=== PATIENT | male | born 1940 | race Caucasian/White ===

== ENCOUNTER 2018-09-17 14:41 | Inpatient (IN) | payer MEDICARE ==
[2018-09-17] MEDS ORDERED: SODIUM CHLORIDE 0.9% 1,000 ML IV ONE ×2 (15:08→20:30)
[2018-09-17] MEDS ORDERED: ASPIRIN 81 MG PO STA (15:08)
[2018-09-17] MEDS ORDERED: ONDANSETRON 4 MG/2 ML VIAL IVP STA (15:08)
--- NOTE | 2018-09-17 15:11 | ED ---
General Adult HPI - General Chief complaint: Weakness Stated complaint: Vomiting Time Seen by Provider: 09/17/18 15:00 Source: patient Mode of arrival: ambulatory Limitations: no limitations - History of Present Illness Initial comments: Patient is a 78-year-old male who presents with a chief complaint of weakness and abdominal pain. This is being going on for about a week, gradually getting worse. The patient was seen by his primary care doctor diagnosed with a urinary tract infection, and started on ciprofloxacin. Patient says his pain is getting worse, he is now nauseated and throwing up. He cannot identify an inciting incident. There are no aggravating or alleviating factors. Timing is constant. - Related Data Home Medications Medication Instructions Recorded Confirmed Albuterol Sulfate [Proair Hfa] 2 puff INHALATION RT-Q6H PRN 09/17/18 09/17/18 Apixaban [Eliquis] 5 mg PO BID 09/17/18 09/17/18 Aspirin EC [Ecotrin Low Dose] 81 mg PO DAILY 09/17/18 09/17/18 Atorvastatin [Lipitor] 40 mg PO DAILY 09/17/18 09/17/18 Digoxin [Lanoxin] 125 mcg PO DAILY 09/17/18 09/17/18 Fluticasone/Vilanterol [Breo 1 puff INHALATION RT-DAILY 09/17/18 09/17/18 Ellipta 100-25 Mcg Inhaler] Furosemide [Lasix] 20 mg PO DAILY 09/17/18 09/17/18 Lisinopril [Zestril] 10 mg PO DAILY 09/17/18 09/17/18 Metoprolol Tartrate [Lopressor] 50 mg PO BID 09/17/18 09/17/18 Nitroglycerin Sl Tabs [Nitrostat] 0.4 mg SUBLINGUAL Q5M PRN 09/17/18 09/17/18 Omeprazole 20 mg PO DAILY 09/17/18 09/17/18 traMADol HCL [Ultram] 50 mg PO DAILY PRN 09/17/18 09/17/18 Allergies Allergy/AdvReac Type Severity Reaction Status Date / Time No Known Allergies Allergy Verified 09/17/18 14:57 Review of Systems ROS Statement: Those systems with pertinent positive or pertinent negative responses have been documented in the HPI. ROS Other: All systems not noted in ROS Statement are negative. Gastrointestinal: Reports: abdominal pain, nausea, vomiting Genitourinary: Reports: dysuria, frequency Past Medical History Past Medical History: Atrial Fibrillation, COPD, Hyperlipidemia, Hypertension Additional Past Medical History / Comment(s): Hiatal hernia History of Any Multi-Drug Resistant Organisms: None Reported Past Surgical History: Heart Catheterization With Stent, Hernia Repair, Prostate Surgery Past Psychological History: No Psychological Hx Reported Smoking Status: Former smoker Past Alcohol Use History: None Reported Past Drug Use History: None Reported General Exam Limitations: no limitations General appearance: alert, in no apparent distress Head exam: Present: atraumatic, normocephalic Eye exam: Present: normal appearance ENT exam: Present: normal exam Neck exam: Present: normal inspection Respiratory exam: Present: normal lung sounds bilaterally. Absent: respiratory distress, wheezes Cardiovascular Exam: Present: regular rate, normal rhythm GI/Abdominal exam: Present: soft, tenderness (Patient has tenderness in the lower abdomen, and chest beneath the xiphoid.). Absent: distended Rectal exam: Present: deferred Extremities exam: Present: normal inspection Back exam: Present: normal inspection Neurological exam: Present: alert, oriented X3 Psychiatric exam: Present: normal affect, normal mood Skin exam: Present: warm, dry, intact Course Vital Signs 09/17/18 09/17/18 09/17/18 14:44 15:46 20:42 Temperature 98.3 F 98.5 F Pulse Rate 67 82 97 Respiratory 20 18 28 H Rate Blood Pressure 150/58 143/98 160/134 O2 Sat by Pulse 97 96 94 L Oximetry 09/17/18 20:44 Temperature Pulse Rate Respiratory 22 Rate Blood Pressure O2 Sat by Pulse 96 Oximetry Medical Decision Making - Medical Decision Making Patient presents with a chief complaint of abdominal pain and weakness. On initial evaluation, vitals are stable, patient is in no acute distress. He evaluated patient allegedly cardiac enzymes, computed tomography scan of the abdomen and pelvis, liver profile and lipase. Patient given IV fluids, Zofran, and aspirin. EKG performed at 1535 shows normal sinus rhythm with a rate of 76 bpm, QTC is 483, symptoms are otherwise within normal limits. Bladder scan shows a 20 mL. 8:31 PM Lab evaluation this patient is unremarkable except for signs of dehydration. He has 2+ ketones in the urine, no evidence of urinary tract infection. Computed tomography scan of the abdomen and pelvis shows an ileus appearance. Case discussed with Dr. Malave who is agreeable to observation with surgery on consultation. Patient will be given an additional liter of fluid and Pyridium for dysuria. - Lab Data Result diagrams: 09/17/18 15:22 09/17/18 15:22 Lab Results 09/17/18 09/17/18 09/17/18 Range/Units 15:22 15:22 15:22 WBC 12.8 H (3.8-10.6) k/uL RBC 4.35 (4.30-5.90) m/uL Hgb 13.4 (13.0-17.5) gm/dL Hct 39.1 (39.0-53.0) % MCV 89.9 (80.0-100.0) fL MCH 30.8 (25.0-35.0) pg MCHC 34.2 (31.0-37.0) g/dL RDW 15.6 H (11.5-15.5) % Plt Count 303 (150-450) k/uL Neutrophils % 81 % Lymphocytes % 11 % Monocytes % 6 % Eosinophils % 0 % Basophils % 0 % Neutrophils # 10.3 H (1.3-7.7) k/uL Lymphocytes # 1.5 (1.0-4.8) k/uL Monocytes # 0.8 (0-1.0) k/uL Eosinophils # 0.0 (0-0.7) k/uL Basophils # 0.0 (0-0.2) k/uL Sodium 140 (137-145) mmol/L Potassium 3.1 L (3.5-5.1) mmol/L Chloride 100 (98-107) mmol/L Carbon Dioxide 23 (22-30) mmol/L Anion Gap 17 mmol/L BUN 10 (9-20) mg/dL Creatinine 0.80 (0.66-1.25) mg/dL Est GFR (CKD-EPI)AfAm >90 (>60 ml/min/1.73 sqM) Est GFR (CKD-EPI)NonAf 87 (>60 ml/min/1.73 sqM) Glucose 171 H (74-99) mg/dL Calcium 7.5 L (8.4-10.2) mg/dL Total Bilirubin 1.5 H (0.2-1.3) mg/dL AST 25 (17-59) U/L ALT 22 (21-72) U/L Alkaline Phosphatase 81 (38-126) U/L Troponin I <0.012 (0.000-0.034) ng/mL Total Protein 6.7 (6.3-8.2) g/dL Albumin 4.1 (3.5-5.0) g/dL Lipase 109 (23-300) U/L Urine Color Urine Appearance (Clear) Urine pH (5.0-8.0) Ur Specific Dickinson (1.001-1.035) Urine Protein (Negative) Urine Glucose (UA) (Negative) Urine Ketones (Negative) Urine Blood (Negative) Urine Nitrite (Negative) Urine Bilirubin (Negative) Urine Urobilinogen (<2.0) mg/dL Ur Leukocyte Esterase (Negative) Urine WBC (0-5) /hpf Ur Squamous Epith Cells (0-4) /hpf Urine Mucus (None) /hpf 09/17/18 Range/Units 17:30 WBC (3.8-10.6) k/uL RBC (4.30-5.90) m/uL Hgb (13.0-17.5) gm/dL Hct (39.0-53.0) % MCV (80.0-100.0) fL MCH (25.0-35.0) pg MCHC (31.0-37.0) g/dL RDW (11.5-15.5) % Plt Count (150-450) k/uL Neutrophils % % Lymphocytes % % Monocytes % % Eosinophils % % Basophils % % Neutrophils # (1.3-7.7) k/uL Lymphocytes # (1.0-4.8) k/uL Monocytes # (0-1.0) k/uL Eosinophils # (0-0.7) k/uL Basophils # (0-0.2) k/uL Sodium (137-145) mmol/L Potassium (3.5-5.1) mmol/L Chloride (98-107) mmol/L Carbon Dioxide (22-30) mmol/L Anion Gap mmol/L BUN (9-20) mg/dL Creatinine (0.66-1.25) mg/dL Est GFR (CKD-EPI)AfAm (>60 ml/min/1.73 sqM) Est GFR (CKD-EPI)NonAf (>60 ml/min/1.73 sqM) Glucose (74-99) mg/dL Calcium (8.4-10.2) mg/dL Total Bilirubin (0.2-1.3) mg/dL AST (17-59) U/L ALT (21-72) U/L Alkaline Phosphatase (38-126) U/L Troponin I (0.000-0.034) ng/mL Total Protein (6.3-8.2) g/dL Albumin (3.5-5.0) g/dL Lipase (23-300) U/L Urine Color Yellow Urine Appearance Clear (Clear) Urine pH 7.0 (5.0-8.0) Ur Specific Dickinson 1.025 (1.001-1.035) Urine Protein 1+ H (Negative) Urine Glucose (UA) Trace H (Negative) Urine Ketones 2+ H (Negative) Urine Blood Negative (Negative) Urine Nitrite Negative (Negative) Urine Bilirubin Negative (Negative) Urine Urobilinogen <2.0 (<2.0) mg/dL Ur Leukocyte Esterase Negative (Negative) Urine WBC 2 (0-5) /hpf Ur Squamous Epith Cells <1 (0-4) /hpf Urine Mucus Rare H (None) /hpf Disposition Clinical Impression: Ileus, Dehydration Disposition: ADMITTED IP TO THIS HOSP Condition: Good Is patient prescribed a controlled substance at d/c from ED?: No Decision to Admit Reason: Admit from EC - Out of Hospital Transfer - Req. Specs Out of Hospital Transfer - Requested Specifics: Other Non-Acute
[2018-09-17 15:38] LABS: Basophils % (A) 0 %; Eosinophils % (A) 0 %; HCT 39.1 % (39.0-53.0); HGB 13.4 gm/dL (13.0-17.5); Lymphocytes # (A) 1.5 k/uL (1.0-4.8); Lymphocytes % (A) 11 %; MCH 30.8 pg (25.0-35.0); MCHC 34.2 g/dL (31.0-37.0); MCV 89.9 fL (80.0-100.0); Mean Platelet Volume 7.3; Monocytes # (A) 0.8 k/uL (0-1.0); Monocytes % (A) 6 %; Neutrophils # (A) 10.3 k/uL (1.3-7.7); Neutrophils % (A) 81 %; Platelet Count 303 k/uL (150-450); RBC 4.35 m/uL (4.30-5.90); RDW 15.6 % (11.5-15.5); WBC 12.8 k/uL (3.8-10.6)
[2018-09-17 16:17] LABS: ALT 22 U/L (21-72); AST 25 U/L (17-59); African American GFR (CKD) >90 (>60 ml/min/1.73 sqM); Albumin 4.1 g/dL (3.5-5.0); Alkaline Phosphatase 81 U/L (38-126); Anion Gap 17 mmol/L; Blood Urea Nitrogen 10 mg/dL (9-20); Calcium 7.5 mg/dL (8.4-10.2); Carbon Dioxide 23 mmol/L (22-30); Chloride 100 mmol/L (98-107); Glucose 171 mg/dL (74-99); Potassium 3.1 mmol/L (3.5-5.1); Sodium 140 mmol/L (137-145); Total Bilirubin 1.5 mg/dL (0.2-1.3); Total Protein 6.7 g/dL (6.3-8.2)
--- NOTE | 2018-09-17 18:01 | CT ---
EXAMINATION TYPE: CT abdomen pelvis w con DATE OF EXAM: 09/17/2018 COMPARISON: NONE HISTORY: 78-year-old male weight loss, nausea, vomiting, epigastric pain TECHNIQUE: Contiguous axial scanning of the abdomen and pelvis following administration of 100 ml Iso paula 300 IV contrast. Delayed images through the kidneys and coronal/sagittal reconstructions perform ed. CT DLP: 798.9 mGycm Automated exposure control for dose reduction was used. FINDINGS: Heart upper limits of normal in size. Mitral annular calcifications. Strandy atelectasis lower lungs. No pleural effusion. Large hiatal hernia containing nearly the entire stomach. Moderate atherosclerotic calcifications throughout the aorta and iliac arteries. No focal liver lesion or biliary ductal dilatation. Some lobulated soft tissue density measuring 2.9 x 2.0 cm within the gallbladder Neck/body region. No abnormal gallbladder distention. Mild thickening of the left adrenal gland without discrete nodularity. Right adrenal gland, spleen, a nd pancreas appear within normal limits. Cortical cysts within both kidneys. Interrupted 2.1 cm on the left. Extrarenal pelvis on the right. No dilated small bowel, free fluid, or free air. Some prominent fluid within the cecum and fluid within the distal ileum. Left-sided colonic diverticu losis. No pericolonic inflammatory change. Bladder partially distended. Postsurgical changes of prostatectomy and lymph node dissection within t he pelvis. Bones: Degenerative changes of the hips and SI joints. Degenerative changes throughout the visualized lumbar spine. IMPRESSION: 1. LARGE HIATAL HERNIA CONTAINING NEARLY THE ENTIRE STOMACH. 2. SOME LOBULATED SOFT TISSUE DENSITY MEASURING 2.9 X 2.0 CM WITHIN THE GALLBLADDER COULD REPRESENT T UMEFACTIVE SLUDGE OR SOFT TISSUE MASS. CONSIDER GALLBLADDER ULTRASOUND WITH COLOR DOPPLER ANALYSIS TO FURTHER EVALUATE. 3. SOME FLUID WITHIN DISTAL ILEUM AND CECUM COULD REPRESENT A MILD REGIONAL ILEUS/ENTERITIS. 4. LEFT-SIDED COLONIC DIVERTICULOSIS.
[2018-09-17 18:20] LABS: Appearance,Urine Clear (Clear); Bilirubin,Urine Negative (Negative); Blood,Urine Negative (Negative); Color,Urine Yellow; Glucose,Urine (UA) Trace (Negative); Ketones,Urine 2+ (Negative); Leukocyte Esterase,Urine Negative (Negative); Mucus,Urine Rare /hpf; Nitrite,Urine Negative (Negative); Protein,Urine 1+ (Negative); Specific Gravity,Urine 1.025 (1.001-1.035); Squamous Epithelial Cell,Urine <1 /hpf (0-4); Urobilinogen,Urine <2.0 mg/dL (<2.0)
[2018-09-17] MEDS ORDERED: METOPROLOL TARTRATE 50 MG TAB PO STA (20:07)
[2018-09-17] MEDS ORDERED: PHENAZOPYRIDINE 200 MG TAB PO STA (20:30)
[2018-09-17] MEDS ORDERED: NALOXONE 0.4 MG/ML 1 ML VIAL IV PRN (20:31)
[2018-09-17] MEDS: POTASSIUM CHLORIDE ER 20 MEQ TAB.ER PO PRN (22:26)
[2018-09-17] MEDS ORDERED: NITROGLYCERIN SL TABS 0.4 MG TAB SUBLINGUAL PRN (23:39)
[2018-09-18] MEDS: APIXABAN 5 MG TAB PO SCH ×3 (00:50→20:28)
[2018-09-18] MEDS: POTASSIUM CHLORIDE ER 20 MEQ TAB.ER PO PRN (00:50)
[2018-09-18] MEDS: LISINOPRIL 10 MG TAB PO SCH (07:47)
[2018-09-18] MEDS: FUROSEMIDE 20 MG TAB PO SCH (07:47)
[2018-09-18] MEDS: METOPROLOL TARTRATE 50 MG TAB PO SCH ×2 (07:47→20:28)
[2018-09-18] MEDS: DIGOXIN 125 MCG TAB PO SCH (07:47)
[2018-09-18] MEDS: ASPIRIN 81 MG PO SCH (07:47)
[2018-09-18] MEDS: PANTOPRAZOLE 40 MG TABLET PO SCH (07:47)
[2018-09-18] MEDS: ATORVASTATIN 40 MG TAB PO SCH (07:48)
[2018-09-18] MEDS ORDERED: SYMBICORT 80-4.5 MCG INHALER INHALATION SCH (08:00)
--- NOTE | 2018-09-18 10:06 | P.GSCN ---
History of Present Illness Consult date: 09/18/18 Reason for Consult: Ileus History of present illness: Patient came to the hospital complaining of weakness and abdominal pain. The patient states his pain is in the lower abdomen. He has been treated for urinary tract infection and started on Cipro. He was having nausea and emesis as well. Today he says he is doing better. Denies pain at this time with the exception of feeling an inability to urinate. CAT scan was obtained which show ed mild ileus pattern with possible mass or sludge in gallbladder, and large hiatal hernia. White blood cell count slightly elevated at 12.8. Bilirubin slightly elevated at 1.5. ALT AST and alkaline phosphatase normal. Patient denies any change in the color of his skin urine or stool. No fevers. No previous radiologic studies on the system. Review of Systems The patient denies any acute changes in vision or hearing, no dysphagia or odynophagia, no chest pain or shortness of breath, no dysuria or hematuria, no headache, no runny nose, no rectal bleeding or melena, no unexplained weight loss Past Medical History Past Medical History: Atrial Fibrillation, COPD, Hyperlipidemia, Hypertension Additional Past Medical History / Comment(s): Hiatal hernia History of Any Multi-Drug Resistant Organisms: None Reported Past Surgical History: Heart Catheterization With Stent, Hernia Repair, Prostate Surgery Date of Last Stent Placement:: 2017 Past Psychological History: No Psychological Hx Reported Smoking Status: Former smoker Past Alcohol Use History: None Reported Past Drug Use History: None Reported Medications and Allergies Home Medications Medication Instructions Recorded Confirmed Type Albuterol Sulfate [Proair Hfa] 2 puff INHALATION RT-Q6H PRN 09/17/18 09/17/18 History Apixaban [Eliquis] 5 mg PO BID 09/17/18 09/17/18 History Aspirin EC [Ecotrin Low Dose] 81 mg PO DAILY 09/17/18 09/17/18 History Atorvastatin [Lipitor] 40 mg PO DAILY 09/17/18 09/17/18 History Digoxin [Lanoxin] 125 mcg PO DAILY 09/17/18 09/17/18 History Fluticasone/Vilanterol [Breo 1 puff INHALATION RT-DAILY 09/17/18 09/17/18 History Ellipta 100-25 Mcg Inhaler] Furosemide [Lasix] 20 mg PO DAILY 09/17/18 09/17/18 History Lisinopril [Zestril] 10 mg PO DAILY 09/17/18 09/17/18 History Metoprolol Tartrate [Lopressor] 50 mg PO BID 09/17/18 09/17/18 History Nitroglycerin Sl Tabs [Nitrostat] 0.4 mg SUBLINGUAL Q5M PRN 09/17/18 09/17/18 History Omeprazole 20 mg PO DAILY 09/17/18 09/17/18 History traMADol HCL [Ultram] 50 mg PO DAILY PRN 09/17/18 09/17/18 History Allergies Allergy/AdvReac Type Severity Reaction Status Date / Time No Known Allergies Allergy Verified 09/17/18 14:57 Surgical - Exam Vital Signs Temp Pulse Resp BP Pulse Ox 98.3 F 67 20 150/58 97 09/17/18 14:44 09/17/18 14:44 09/17/18 14:44 09/17/18 14:44 09/17/18 14:44 Physical exam: General: Well-developed, well-nourished HEENT: Normocephalic, sclerae nonicteric Abdomen: Nontender, nondistended Extremities: No edema Neuro: Alert and oriented Results - Labs 09/17/18 15:22 09/17/18 15:22 Abnormal Lab Results - Last 24 Hours (Table) 09/17/18 09/17/18 09/17/18 Range/Units 15:22 15:22 17:30 WBC 12.8 H (3.8-10.6) k/uL RDW 15.6 H (11.5-15.5) % Neutrophils # 10.3 H (1.3-7.7) k/uL Potassium 3.1 L (3.5-5.1) mmol/L Glucose 171 H (74-99) mg/dL Calcium 7.5 L (8.4-10.2) mg/dL Total Bilirubin 1.5 H (0.2-1.3) mg/dL Urine Protein 1+ H (Negative) Urine Glucose (UA) Trace H (Negative) Urine Ketones 2+ H (Negative) Urine Mucus Rare H (None) /hpf Diabetes panel 09/17/18 Range/Units 15:22 Sodium 140 (137-145) mmol/L Potassium 3.1 L (3.5-5.1) mmol/L Chloride 100 (98-107) mmol/L Carbon Dioxide 23 (22-30) mmol/L BUN 10 (9-20) mg/dL Creatinine 0.80 (0.66-1.25) mg/dL Glucose 171 H (74-99) mg/dL Calcium 7.5 L (8.4-10.2) mg/dL AST 25 (17-59) U/L ALT 22 (21-72) U/L Alkaline Phosphatase 81 (38-126) U/L Total Protein 6.7 (6.3-8.2) g/dL Albumin 4.1 (3.5-5.0) g/dL Calcium panel 09/17/18 Range/Units 15:22 Calcium 7.5 L (8.4-10.2) mg/dL Albumin 4.1 (3.5-5.0) g/dL Pituitary panel 09/17/18 Range/Units 15:22 Sodium 140 (137-145) mmol/L Potassium 3.1 L (3.5-5.1) mmol/L Chloride 100 (98-107) mmol/L Carbon Dioxide 23 (22-30) mmol/L BUN 10 (9-20) mg/dL Creatinine 0.80 (0.66-1.25) mg/dL Glucose 171 H (74-99) mg/dL Calcium 7.5 L (8.4-10.2) mg/dL Adrenal panel 09/17/18 Range/Units 15:22 Sodium 140 (137-145) mmol/L Potassium 3.1 L (3.5-5.1) mmol/L Chloride 100 (98-107) mmol/L Carbon Dioxide 23 (22-30) mmol/L BUN 10 (9-20) mg/dL Creatinine 0.80 (0.66-1.25) mg/dL Glucose 171 H (74-99) mg/dL Calcium 7.5 L (8.4-10.2) mg/dL Total Bilirubin 1.5 H (0.2-1.3) mg/dL AST 25 (17-59) U/L ALT 22 (21-72) U/L Alkaline Phosphatase 81 (38-126) U/L Total Protein 6.7 (6.3-8.2) g/dL Albumin 4.1 (3.5-5.0) g/dL Assessment and Plan (1) Ileus Narrative/Plan: Patient doing better at this time. CAT scan findings reviewed with the patient. We'll start clear liquid diet. Will order abdominal ultrasound to evaluate the gallbladder. May require upper endoscopy at some point. I do not believe the patient's vomiting was directly related to his hiatal hernia however. No surgical intervention likely during this hospitalization. We'll follow with you. Current Visit: Yes Status: Acute Code(s): K56.7 - ILEUS, UNSPECIFIED SNOMED Code(s): 933078743
[2018-09-18 12:26] LABS: African American GFR (CKD) >90 (>60 ml/min/1.73 sqM); Anion Gap 12 mmol/L; Blood Urea Nitrogen 8 mg/dL (9-20); Calcium 7.2 mg/dL (8.4-10.2); Carbon Dioxide 23 mmol/L (22-30); Chloride 105 mmol/L (98-107); Glucose 103 mg/dL (74-99); Potassium 3.6 mmol/L (3.5-5.1); Sodium 140 mmol/L (137-145)
[2018-09-18] MEDS: ALBUTEROL NEBULIZED 2.5 MG/3 ML INHALATION PRN (13:05)
[2018-09-18 13:06] VITALS: BMI 25.7
[2018-09-18 13:10] LABS: Anisocytosis Slight; Basophils % (A) 0 %; Eosinophils # (A) 0.1 k/uL (0-0.7); Eosinophils % (A) 1 %; HCT 37.9 % (39.0-53.0); Lymphocytes # (A) 1.9 k/uL (1.0-4.8); Lymphocytes % (A) 17 %; MCH 31.4 pg (25.0-35.0); MCHC 34.2 g/dL (31.0-37.0); MCV 91.9 fL (80.0-100.0); Mean Platelet Volume 8.2; Monocytes # (A) 0.8 k/uL (0-1.0); Monocytes % (A) 7 %; Neutrophils # (A) 8.4 k/uL (1.3-7.7); Neutrophils % (A) 74 %; Platelet Count 260 k/uL (150-450); RBC 4.13 m/uL (4.30-5.90); RDW 16.1 % (11.5-15.5); WBC 11.3 k/uL (3.8-10.6)
--- NOTE | 2018-09-18 16:30 | US ---
EXAMINATION TYPE: US gallbladder DATE OF EXAM: 09/18/2018 COMPARISON: CT dated 09/17/2018 CLINICAL HISTORY: evaluate gallbladder mass. Abnormal CT EXAM MEASUREMENTS: Liver Length: 11.3 cm Gallbladder Wall: 0.3 cm CBD: 0.5 cm Right Kidney: 10.1 x 5.3 x 5.2 cm Pancreas: Obscured by bowel gas Liver: limited visualization to intercostal window Gallbladder: multiple small stones/sludge with shadowing. Evidence for sonographic Mcpherson's sign: No CBD: wnl Right Kidney: No hydronephrosis or masses seen IMPRESSION: Exam is limited. Tumefactive sludge within the gallbladder, there are likely associated s tones.
[2018-09-18] MEDS: TAMSULOSIN 0.4 MG CAP.ER.24H PO SCH (17:26)
--- NOTE | 2018-09-18 19:34 | HP ---
HISTORY AND PHYSICAL CHIEF COMPLAINT: Ileus and dehydration with a history of weight loss. HISTORY OF PRESENT ILLNESS: This gentleman is brought to the emergency room by his when he started to have nausea and vomiting. He has not been eating or had much of an appetite and has been losing weight over the last 3 months. He has had no other symptoms to go with it such as cough, abdominal pain, bleeding, etc. He has been making less urine. When he came to the emergency room he was diagnosed with an ileus. However, Gan catheter was placed and he got great relief from the abdominal discomfort and there was a large quantity of urine obtained. He had a CA of the prostate, but it was many years ago. His thinks that he has lost about 30 pounds. REVIEW OF SYSTEMS: He has had no neurologic problems, confusion, headaches, chest pain, shortness of breath, cough, hemoptysis, heart disease, angina, infarctions, orthopnea, PND, nausea, vomiting, food intolerance, hematemesis, melena, hematochezia, pancreatitis, jaundice, hepatitis, history of renal failure, urinary retention, nocturia, etc. He is not diabetic. Past medical history, family history and personal and social histories are otherwise unremarkable. He has had CA of the prostate but many years ago. He is not allergic to any medication. Medicines he is taking are in his AMA. PHYSICAL EXAM: Blood pressure is 141/74 with a pulse of 73, respirations of 19 and he is afebrile. In general, appeared to be well developed, well nourished, in no acute distress. Skin color is normal. Skin is warm and dry. Lymph nodes not enlarged. Head, ears, eyes, nose, mouth, and throat were normal and neck veins not distended. Thyroid is not enlarged. The chest is clear. Cardiac exam is normal. The abdomen is soft and nontender without masses. Extremities are normal. Neurologically he is intact. IMPRESSION: 1. Abdominal pain. 2. Urinary retention. 3. Anorexia. 4. Unexplained weight loss. 5. History of carcinoma of the prostate. PLAN: 1. Bed rest. 2. IV fluids. 3. Gan catheter to drainage. 4. Start Flomax 0.4 mg once a day. 5. Look for etiology of anorexia and weight loss. MMODL / IJN: [id number] /
--- NOTE | 2018-09-18 20:45 | PN ---
PROGRESS NOTE CHIEF COMPLAINT: Abdominal pain, dehydration and probable urinary retention with history of weight loss. HISTORY OF PRESENT ILLNESS: This gentleman is feeling fairly well. He is doing a bit better. The Gan catheter is still in place. PHYSICAL EXAM: Chest is clear. Cardiac exam is normal. Abdomen is soft, nontender. IMPRESSION: 1. Urinary retention. 2. Unexplained weight loss. PLAN: 1. Continue with IV fluids. 2. Order PSA. 3. Look for etiology of anorexia, weight loss. MMODL / IJN: [id number] /
[2018-09-19] MEDS: FUROSEMIDE 20 MG TAB PO SCH (08:07)
[2018-09-19] MEDS: METOPROLOL TARTRATE 50 MG TAB PO SCH ×2 (08:07→19:35)
[2018-09-19] MEDS: LISINOPRIL 10 MG TAB PO SCH (08:07)
[2018-09-19] MEDS: ASPIRIN 81 MG PO SCH (08:07)
[2018-09-19] MEDS: PANTOPRAZOLE 40 MG TABLET PO SCH (08:07)
[2018-09-19] MEDS: DIGOXIN 125 MCG TAB PO SCH (08:07)
[2018-09-19] MEDS: APIXABAN 5 MG TAB PO SCH ×2 (08:07→19:35)
[2018-09-19] MEDS: ATORVASTATIN 40 MG TAB PO SCH (08:07)
[2018-09-19 10:12] LABS: ALT 27 U/L (21-72); AST 39 U/L (17-59); African American GFR (CKD) >90 (>60 ml/min/1.73 sqM); Albumin 3.5 g/dL (3.5-5.0); Alkaline Phosphatase 67 U/L (38-126); Anion Gap 13 mmol/L; Blood Urea Nitrogen 10 mg/dL (9-20); Calcium 6.9 mg/dL (8.4-10.2); Carbon Dioxide 26 mmol/L (22-30); Chloride 103 mmol/L (98-107); Glucose 85 mg/dL (74-99); Sodium 142 mmol/L (137-145); Total Bilirubin 1.7 mg/dL (0.2-1.3); Total Protein 6.1 g/dL (6.3-8.2)
[2018-09-19] MEDS ORDERED: Potassium Replacement Protocol 1 EACH MISC MISCELLANE PRN (10:44)
[2018-09-19] MEDS: POTASSIUM CHLORIDE ER 20 MEQ TAB.ER PO SCH ×7 (11:23→21:03)
[2018-09-19] MEDS: ALBUTEROL NEBULIZED 2.5 MG/3 ML INHALATION PRN (11:51)
[2018-09-19] MEDS ORDERED: Magnesium Replacement Protocol 1 EACH MISC MISCELLANE PRN (12:25)
[2018-09-19] MEDS: MAGNESIUM SULFATE-D5W PMX 1 GM in DEXTROSE/WATER 1 100ML.BAG IVPB SCH ×4 (12:52→16:54)
[2018-09-19] MEDS: SODIUM CHLORIDE 0.9% 1,000 ML IV SCH (12:53)
[2018-09-19] MEDS: MAGNESIUM OXIDE 400 MG TAB PO SCH (12:59)
[2018-09-19] MEDS: SYMBICORT 80-4.5 MCG INHALER INHALATION SCH ×2 (15:17→19:40)
--- NOTE | 2018-09-19 16:08 | P.PN ---
Subjective Progress Note Date: 09/19/18 CHIEF COMPLAINT: vomiting HISTORY OF PRESENT ILLNESS: Patient examined at the bedside. No further episodes of vomiting. Patient tolerating clear liquid diet. Denies BM this morning. He denies abdominal pain. PHYSICAL EXAM: VITAL SIGNS: Reviewed. GENERAL: Well-developed in no acute distress. HEENT: No sclera icterus. Extraocular movements grossly intact. Moist buccal mucosa. Head is atraumatic, normocephalic. Hard of hearing. No nasal drainage. NECK: Supple without lymphadenopathy. CHEST: Non-labored respirations and equal bilateral excursions. CARDIOVASCULAR: Regular rate with regular rhythm. Palpable 2+ radial pulses. ABDOMEN: Soft. Nondistended. Nontender. Positive bowel sounds. MUSCULOSKELETAL: No clubbing or cyanosis. NEUROLOGIC: No focal or lateralizing signs. Cranial nerves II through XII grossly intact. PSYCH: Appropriate affect. Awake and alert. SKIN: Well perfused. Good skin turgor. ASSESSMENT: 1. Vomiting 2. Ileus 3. Hypokalemia 4. Severe hypomagnesemia 5. Large hiatal hernia 6. Cholelithiasis PLAN: 1. Full liquid diet 2. Replace potassium and magnesium. Recheck labs in AM 3. No surgical intervention recommended at this time 4. Patient to follow up with Dr. Rain outpatient. Possible outpatient EGD secondary to hiatal hernia. No immediate plans for cholecystectomy at this time. Nurse practitioner note has been reviewed by physician. Signing provider agrees with the documented findings, assessment, and plan of care. Objective - Vital Signs Vital signs: Vital Signs Temp 98.0 F 09/19/18 07:00 Pulse 86 09/19/18 12:03 Resp 16 09/19/18 08:00 BP 167/95 09/19/18 07:00 Pulse Ox 94 L 09/19/18 07:00 Intake & Output 09/18/18 09/19/18 09/19/18 18:59 06:59 18:59 Output Total 500 750 Balance -500 -750 Weight 74.389 kg Output: Urine 500 750 Coude 500 Other: Voiding Method Urinal Urinal Urinal Indwelling Catheter Indwelling Catheter Indwelling Catheter # Voids 3 400 # Bowel Movements 0 - Labs CBC & Chem 7: 09/18/18 11:10 09/19/18 09:35 Labs: Abnormal Lab Results - Last 24 Hours (Table) 09/19/18 09/19/18 Range/Units 09:35 09:35 Potassium 3.0 L (3.5-5.1) mmol/L Calcium 6.9 L (8.4-10.2) mg/dL Magnesium <0.4 L* (1.6-2.3) mg/dL Total Bilirubin 1.7 H (0.2-1.3) mg/dL Total Protein 6.1 L (6.3-8.2) g/dL Microbiology - Last 24 Hours (Table) 09/18/18 09:08 Urine Culture - Final Urine,Catheterized Assessment and Plan (1) Hypokalemia Current Visit: Yes Status: Acute Code(s): E87.6 - HYPOKALEMIA SNOMED Code(s): 81461016 (2) Cholelithiasis Current Visit: Yes Status: Acute Code(s): K80.20 - CALCULUS OF GALLBLADDER W/O CHOLECYSTITIS W/O OBSTRUCTION SNOMED Code(s): 034315119 (3) Dehydration Current Visit: Yes Status: Acute Code(s): E86.0 - DEHYDRATION SNOMED Code(s): 58272610 (4) Hypomagnesemia Current Visit: Yes Status: Acute Code(s): E83.42 - HYPOMAGNESEMIA SNOMED Code(s): 034369542 (5) Ileus Current Visit: Yes Status: Acute Code(s): K56.7 - ILEUS, UNSPECIFIED SNOMED Code(s): 094972174
[2018-09-19] MEDS: TAMSULOSIN 0.4 MG CAP.ER.24H PO SCH (16:54)
--- NOTE | 2018-09-19 19:57 | PN ---
PROGRESS NOTE CHIEF COMPLAINT: Abdominal pain and urinary retention. HISTORY OF PRESENT ILLNESS: This gentleman states he is feeling fairly well. He is not nauseated, but he is not hungry. He has had no vomiting. Gan catheter is still in place. He has developed some laboratory abnormalities, with a very low magnesium and potassium which is at 3. REVIEW OF SYSTEMS: He has had no headache, neurologic symptom changes, shortness of breath, chest pain, abdominal pain, diarrhea, melena, hematochezia, etc. PHYSICAL EXAMINATION: Blood pressure is 167/95. Pulse is 68. Respirations are 30. He is afebrile. In general he appeared to be comfortable and in no acute distress. Skin color was good. Hydration was improved. Chest was clear and the cardiac exam was normal. Abdomen was soft, nontender. IMPRESSION: 1. Abdominal pain. 2. Possible ileus. 3. Urinary retention. 4. Hypomagnesemia. 5. Hypokalemia. 6. Hypertension. PLAN: 1. Replace magnesium and potassium. 2. Continue with IV fluids. 3. Monitor hypertension. 4. Increase activity. MMODL / IJN: [id number] /
[2018-09-20] MEDS: ALBUTEROL NEBULIZED 2.5 MG/3 ML INHALATION PRN ×2 (07:51→19:36)
[2018-09-20] MEDS: SYMBICORT 80-4.5 MCG INHALER INHALATION SCH ×2 (07:51→19:34)
[2018-09-20] MEDS: ASPIRIN 81 MG PO SCH (08:01)
[2018-09-20] MEDS: SODIUM CHLORIDE 0.9% 1,000 ML IV SCH (08:01)
[2018-09-20] MEDS: DIGOXIN 125 MCG TAB PO SCH (08:01)
[2018-09-20] MEDS: MAGNESIUM OXIDE 400 MG TAB PO SCH (08:01)
[2018-09-20] MEDS: LISINOPRIL 10 MG TAB PO SCH (08:01)
[2018-09-20] MEDS: FUROSEMIDE 20 MG TAB PO SCH (08:01)
[2018-09-20] MEDS: METOPROLOL TARTRATE 50 MG TAB PO SCH ×2 (08:01→22:40)
[2018-09-20] MEDS: ATORVASTATIN 40 MG TAB PO SCH (08:01)
[2018-09-20] MEDS: PANTOPRAZOLE 40 MG TABLET PO SCH (08:01)
[2018-09-20] MEDS: APIXABAN 5 MG TAB PO SCH ×2 (08:01→22:40)
[2018-09-20 09:58] LABS: ALT 28 U/L (21-72); AST 40 U/L (17-59); African American GFR (CKD) >90 (>60 ml/min/1.73 sqM); Albumin 3.6 g/dL (3.5-5.0); Alkaline Phosphatase 77 U/L (38-126); Anion Gap 11 mmol/L; Blood Urea Nitrogen 12 mg/dL (9-20); Calcium 7.3 mg/dL (8.4-10.2); Carbon Dioxide 24 mmol/L (22-30); Chloride 104 mmol/L (98-107); Glucose 164 mg/dL (74-99); Magnesium 1.5 mg/dL (1.6-2.3); Potassium 3.8 mmol/L (3.5-5.1); Sodium 139 mmol/L (137-145); Total Bilirubin 1.6 mg/dL (0.2-1.3); Total Protein 6.2 g/dL (6.3-8.2)
[2018-09-20 10:00] LABS: Basophils % (A) 1 %; Eosinophils # (A) 0.1 k/uL (0-0.7); Eosinophils % (A) 1 %; HGB 12.2 gm/dL (13.0-17.5); Lymphocytes # (A) 1.5 k/uL (1.0-4.8); Lymphocytes % (A) 20 %; MCH 30.1 pg (25.0-35.0); MCV 91.2 fL (80.0-100.0); Mean Platelet Volume 6.8; Monocytes # (A) 0.4 k/uL (0-1.0); Monocytes % (A) 5 %; Neutrophils # (A) 5.3 k/uL (1.3-7.7); Neutrophils % (A) 72 %; Platelet Count 269 k/uL (150-450); RBC 4.06 m/uL (4.30-5.90); RDW 14.7 % (11.5-15.5); WBC 7.4 k/uL (3.8-10.6)
[2018-09-20] MEDS: MAGNESIUM SULFATE-D5W PMX 1 GM in DEXTROSE/WATER 1 100ML.BAG IVPB SCH ×2 (10:28→13:30)
[2018-09-20] MEDS ORDERED: POTASSIUM CHLORIDE ER 20 MEQ TAB.ER PO ONE (11:00)
--- NOTE | 2018-09-20 11:30 | P.PN ---
Subjective Progress Note Date: 09/20/18 CHIEF COMPLAINT: vomiting HISTORY OF PRESENT ILLNESS: Patient examined at the bedside. No further episodes of vomiting. Patient tolerating full liquid diet. Denies BM this morning. He denies abdominal pain. PHYSICAL EXAM: VITAL SIGNS: Reviewed. GENERAL: Well-developed in no acute distress. HEENT: No sclera icterus. Extraocular movements grossly intact. Moist buccal mucosa. Head is atraumatic, normocephalic. Hard of hearing. No nasal drainage. NECK: Supple without lymphadenopathy. CHEST: Non-labored respirations and equal bilateral excursions. CARDIOVASCULAR: Regular rate with regular rhythm. Palpable 2+ radial pulses. ABDOMEN: Soft. Nondistended. Nontender. Positive bowel sounds. MUSCULOSKELETAL: No clubbing or cyanosis. NEUROLOGIC: No focal or lateralizing signs. Cranial nerves II through XII grossly intact. PSYCH: Appropriate affect. Awake and alert. SKIN: Well perfused. Good skin turgor. ASSESSMENT: 1. Vomiting 2. Ileus 3. Hypokalemia 4. Severe hypomagnesemia 5. Large hiatal hernia 6. Cholelithiasis PLAN: 1. Full liquid diet. Advance as tolerated 2. Replace potassium and magnesium per protocol 3. No surgical intervention recommended at this time 4. Patient to follow up with Dr. Rain outpatient. Possible outpatient EGD secondary to hiatal hernia. No immediate plans for cholecystectomy at this time. 5. We will sign off. Please re-consult if needed Nurse practitioner note has been reviewed by physician. Signing provider agrees with the documented findings, assessment, and plan of care. Objective - Vital Signs Vital signs: Vital Signs Temp 98.2 F 09/20/18 04:30 Pulse 80 09/20/18 08:03 Resp 20 09/20/18 08:00 BP 163/81 09/20/18 04:30 Pulse Ox 91 L 09/20/18 04:30 Intake & Output 09/19/18 09/20/18 09/20/18 18:59 06:59 18:59 Intake Total 300 Output Total 400 2400 Balance -400 -2100 Intake: Oral 300 Output: Urine 400 2400 Coude 1200 Other: Voiding Method Urinal Urinal Urinal Indwelling Catheter Indwelling Catheter Indwelling Catheter - Labs CBC & Chem 7: 09/20/18 09:20 09/20/18 09:20 Labs: Abnormal Lab Results - Last 24 Hours (Table) 07/29/19 07/30/19 07/30/19 Range/Units 09:35 09:20 09:20 RBC 4.06 L (4.30-5.90) m/uL Hgb 12.2 L (13.0-17.5) gm/dL Hct 37.0 L (39.0-53.0) % Glucose 164 H (74-99) mg/dL Calcium 7.3 L (8.4-10.2) mg/dL Magnesium <0.4 L* 1.5 L (1.6-2.3) mg/dL Total Bilirubin 1.6 H (0.2-1.3) mg/dL Total Protein 6.2 L (6.3-8.2) g/dL Microbiology - Last 24 Hours (Table) 09/18/18 09:08 Urine Culture - Final Urine,Catheterized Assessment and Plan (1) Hypokalemia Current Visit: Yes Status: Acute Code(s): E87.6 - HYPOKALEMIA SNOMED Code(s): 58169683 (2) Cholelithiasis Current Visit: Yes Status: Acute Code(s): K80.20 - CALCULUS OF GALLBLADDER W/O CHOLECYSTITIS W/O OBSTRUCTION SNOMED Code(s): 481646547 (3) Dehydration Current Visit: Yes Status: Acute Code(s): E86.0 - DEHYDRATION SNOMED Code(s): 23374652 (4) Hypomagnesemia Current Visit: Yes Status: Acute Code(s): E83.42 - HYPOMAGNESEMIA SNOMED Code(s): 865954041 (5) Ileus Current Visit: Yes Status: Acute Code(s): K56.7 - ILEUS, UNSPECIFIED SNOMED Code(s): 028514580
[2018-09-20] MEDS: TAMSULOSIN 0.4 MG CAP.ER.24H PO SCH (18:38)
--- NOTE | 2018-09-20 22:35 | PN ---
PROGRESS NOTE CHIEF COMPLAINT: Abdominal pain, ileus and acute urinary retention. HISTORY OF PRESENT ILLNESS: The gentleman is doing very well. He is very anxious to be discharged. Gan catheter still in place. He is not having any further abdominal pain, chest pain, shortness of breath, etc. PHYSICAL EXAMINATION: His color is good. He is awake and alert. Chest is clear. Cardiac exam is normal and the abdomen is soft and nontender. Gan is in place. IMPRESSION: 1. Urinary retention. 2. Dehydration. 3. Ileus. PLAN: We will take the Gan catheter out tomorrow morning. If he is able to void, we will consider sending him home. JAMILA / SHERMANN: [id number] /
[2018-09-21] MEDS: SODIUM CHLORIDE 0.9% 1,000 ML IV SCH ×2 (06:07→20:08)
[2018-09-21] MEDS: METOPROLOL TARTRATE 50 MG TAB PO SCH ×2 (08:18→20:05)
[2018-09-21] MEDS: ASPIRIN 81 MG PO SCH (08:18)
[2018-09-21] MEDS: ATORVASTATIN 40 MG TAB PO SCH (08:18)
[2018-09-21] MEDS: APIXABAN 5 MG TAB PO SCH ×2 (08:18→20:05)
[2018-09-21] MEDS: MAGNESIUM OXIDE 400 MG TAB PO SCH (08:18)
[2018-09-21] MEDS: DIGOXIN 125 MCG TAB PO SCH (08:19)
[2018-09-21] MEDS: PANTOPRAZOLE 40 MG TABLET PO SCH (08:19)
[2018-09-21] MEDS: LISINOPRIL 10 MG TAB PO SCH (08:19)
[2018-09-21] MEDS: FUROSEMIDE 20 MG TAB PO SCH (08:19)
[2018-09-21] MEDS: SYMBICORT 80-4.5 MCG INHALER INHALATION SCH ×2 (08:33→19:19)
[2018-09-21 09:34] LABS: Basophils % (A) 1 %; Eosinophils # (A) 0.2 k/uL (0-0.7); Eosinophils % (A) 3 %; HCT 37.3 % (39.0-53.0); HGB 12.5 gm/dL (13.0-17.5); Lymphocytes # (A) 1.4 k/uL (1.0-4.8); Lymphocytes % (A) 19 %; MCH 30.8 pg (25.0-35.0); MCHC 33.6 g/dL (31.0-37.0); MCV 91.8 fL (80.0-100.0); Mean Platelet Volume 6.9; Monocytes # (A) 0.5 k/uL (0-1.0); Monocytes % (A) 7 %; Neutrophils # (A) 5.4 k/uL (1.3-7.7); Neutrophils % (A) 70 %; Platelet Count 256 k/uL (150-450); RBC 4.07 m/uL (4.30-5.90); RDW 14.7 % (11.5-15.5); WBC 7.7 k/uL (3.8-10.6)
[2018-09-21 09:49] LABS: ALT 28 U/L (21-72); AST 35 U/L (17-59); African American GFR (CKD) >90 (>60 ml/min/1.73 sqM); Albumin 3.6 g/dL (3.5-5.0); Alkaline Phosphatase 82 U/L (38-126); Anion Gap 10 mmol/L; Blood Urea Nitrogen 8 mg/dL (9-20); Calcium 8.1 mg/dL (8.4-10.2); Carbon Dioxide 23 mmol/L (22-30); Chloride 105 mmol/L (98-107); Glucose 126 mg/dL (74-99); Potassium 4.4 mmol/L (3.5-5.1); Sodium 138 mmol/L (137-145); Total Bilirubin 1.5 mg/dL (0.2-1.3); Total Protein 6.4 g/dL (6.3-8.2)
[2018-09-21 13:03] LABS: Basophils % (A) 1 %; Eosinophils # (A) 0.2 k/uL (0-0.7); Eosinophils % (A) 2 %; HCT 40.9 % (39.0-53.0); HGB 13.4 gm/dL (13.0-17.5); Lymphocytes # (A) 1.6 k/uL (1.0-4.8); Lymphocytes % (A) 19 %; MCH 30.8 pg (25.0-35.0); MCHC 32.6 g/dL (31.0-37.0); MCV 94.4 fL (80.0-100.0); Mean Platelet Volume 7.1; Monocytes # (A) 0.5 k/uL (0-1.0); Monocytes % (A) 6 %; Neutrophils % (A) 72 %; Platelet Count 284 k/uL (150-450); RBC 4.34 m/uL (4.30-5.90); RDW 15.6 % (11.5-15.5); WBC 8.4 k/uL (3.8-10.6)
--- NOTE | 2018-09-21 16:45 | PN ---
PROGRESS NOTE CHIEF COMPLAINT: Urinary retention and ileus. HISTORY OF PRESENT ILLNESS: This gentleman is doing fairly well. However, this morning his urine in Gan collection bag is very bloody. He states he thinks he pulled on the catheter last night. He has had no fever, chills, etc. He also is hallucinating. He seems oriented, but he simply states that he is seeing people and animals. PHYSICAL EXAMINATION: He is awake and alert. He has no focal neurologic deficits. Chest is clear. Cardiac exam is normal. Abdomen is soft. Urine in the Gan bag is bright red. IMPRESSION: 1. Urinary retention. 2. New onset of gross hematuria. 3. Hallucinations. PLAN: 1. Urology consult. 2. Leave Gan catheter in place. 3. Continue to monitor his neurologic and psychiatric status. MMODL / IJN: [id number] /
--- NOTE | 2018-09-21 17:22 | P.GSCN ---
History of Present Illness Consult date: 09/21/18 History of present illness: This is a 78-year-old gentleman who came in the hospital with abdominal pain. Etiology of the pain is uncertain. He seems to be improving. He had a catheter placed in the emergency room. He developed some blood in the urine. We are asked see the patient for the blood in the urine. The patient's history is of questionable value as he seems disoriented. Whether this is acute or chronic is indeterminant I suspect chronic. He had a clear urinalysis upon admission however. He cannot really give any urologic history. Review of Systems ROS unobtainable: due to mental status Past Medical History Past Medical History: Atrial Fibrillation, COPD, Hyperlipidemia, Hypertension Additional Past Medical History / Comment(s): Hiatal hernia History of Any Multi-Drug Resistant Organisms: None Reported Past Surgical History: Heart Catheterization With Stent, Hernia Repair, Prostate Surgery Date of Last Stent Placement:: 2017 Past Psychological History: No Psychological Hx Reported Smoking Status: Former smoker Past Alcohol Use History: None Reported Past Drug Use History: None Reported Medications and Allergies Home Medications Medication Instructions Recorded Confirmed Type Albuterol Sulfate [Proair Hfa] 2 puff INHALATION RT-Q6H PRN 09/17/18 09/17/18 History Apixaban [Eliquis] 5 mg PO BID 09/17/18 09/17/18 History Aspirin EC [Ecotrin Low Dose] 81 mg PO DAILY 09/17/18 09/17/18 History Atorvastatin [Lipitor] 40 mg PO DAILY 09/17/18 09/17/18 History Digoxin [Lanoxin] 125 mcg PO DAILY 09/17/18 09/17/18 History Fluticasone/Vilanterol [Breo 1 puff INHALATION RT-DAILY 09/17/18 09/17/18 Histo ry Ellipta 100-25 Mcg Inhaler] Furosemide [Lasix] 20 mg PO DAILY 09/17/18 09/17/18 History Lisinopril [Zestril] 10 mg PO DAILY 09/17/18 09/17/18 History Metoprolol Tartrate [Lopressor] 50 mg PO BID 09/17/18 09/17/18 History Nitroglycerin Sl Tabs [Nitrostat] 0.4 mg SUBLINGUAL Q5M PRN 09/17/18 09/17/18 History Omeprazole 20 mg PO DAILY 09/17/18 09/17/18 History traMADol HCL [Ultram] 50 mg PO DAILY PRN 09/17/18 09/17/18 History Allergies Allergy/AdvReac Type Severity Reaction Status Date / Time No Known Allergies Allergy Verified 09/17/18 14:57 Surgical - Exam Vital Signs Temp Pulse Resp BP Pulse Ox 98.3 F 67 20 150/58 97 09/17/18 14:44 09/17/18 14:44 09/17/18 14:44 09/17/18 14:44 09/17/18 14:44 - General well developed, well nourished, no distress - Eyes PERRL - ENT no hearing loss - Neck trachea midline - Respiratory normal expansion, normal respiratory effort - Cardiovascular Rhythm: irregularly irregular - Abdomen Abdomen: soft, non tender - Genitourinary Normal penis testes indwelling catheter with bloody urine old, old blood - Integumentary no rash, no growths - Neurologic disoriented, memory loss Results - Labs 09/21/18 12:45 09/21/18 09:14 Abnormal Lab Results - Last 24 Hours (Table) 09/21/18 09/21/18 09/21/18 Range/Units 09:14 09:14 12:45 RBC 4.07 L (4.30-5.90) m/uL Hgb 12.5 L (13.0-17.5) gm/dL Hct 37.3 L (39.0-53.0) % RDW 15.6 H (11.5-15.5) % BUN 8 L (9-20) mg/dL Glucose 126 H (74-99) mg/dL Calcium 8.1 L (8.4-10.2) mg/dL Total Bilirubin 1.5 H (0.2-1.3) mg/dL Diabetes panel 09/21/18 Range/Units 09:14 Sodium 138 (137-145) mmol/L Potassium 4.4 (3.5-5.1) mmol/L Chloride 105 (98-107) mmol/L Carbon Dioxide 23 (22-30) mmol/L BUN 8 L (9-20) mg/dL Creatinine 0.66 (0.66-1.25) mg/dL Glucose 126 H (74-99) mg/dL Calcium 8.1 L (8.4-10.2) mg/dL AST 35 (17-59) U/L ALT 28 (21-72) U/L Alkaline Phosphatase 82 (38-126) U/L Total Protein 6.4 (6.3-8.2) g/dL Albumin 3.6 (3.5-5.0) g/dL Calcium panel 09/21/18 Range/Units 09:14 Calcium 8.1 L (8.4-10.2) mg/dL Albumin 3.6 (3.5-5.0) g/dL Pituitary panel 09/21/18 Range/Units 09:14 Sodium 138 (137-145) mmol/L Potassium 4.4 (3.5-5.1) mmol/L Chloride 105 (98-107) mmol/L Carbon Dioxide 23 (22-30) mmol/L BUN 8 L (9-20) mg/dL Creatinine 0.66 (0.66-1.25) mg/dL Glucose 126 H (74-99) mg/dL Calcium 8.1 L (8.4-10.2) mg/dL Adrenal panel 09/21/18 Range/Units 09:14 Sodium 138 (137-145) mmol/L Potassium 4.4 (3.5-5.1) mmol/L Chloride 105 (98-107) mmol/L Carbon Dioxide 23 (22-30) mmol/L BUN 8 L (9-20) mg/dL Creatinine 0.66 (0.66-1.25) mg/dL Glucose 126 H (74-99) mg/dL Calcium 8.1 L (8.4-10.2) mg/dL Total Bilirubin 1.5 H (0.2-1.3) mg/dL AST 35 (17-59) U/L ALT 28 (21-72) U/L Alkaline Phosphatase 82 (38-126) U/L Total Protein 6.4 (6.3-8.2) g/dL Albumin 3.6 (3.5-5.0) g/dL - Imaging CT scan - abdomen: report reviewed, image reviewed CT scan - pelvis: report reviewed, image reviewed Assessment and Plan Assessment: Impression: Gross hematuria secondary to catheter trauma. Recommendations: Nothing urologic needs to be done. The catheter can be removed whenever medically able. If further urologic problems arise please feel free to contact me.
[2018-09-21] MEDS: TAMSULOSIN 0.4 MG CAP.ER.24H PO SCH (17:35)
[2018-09-21] MEDS: traMADol 50 MG TAB PO PRN (20:05)
[2018-09-22] MEDS: traMADol 50 MG TAB PO PRN (06:11)
[2018-09-22] MEDS: APIXABAN 5 MG TAB PO SCH ×2 (08:25→20:42)
[2018-09-22] MEDS: METOPROLOL TARTRATE 50 MG TAB PO SCH ×2 (08:25→20:42)
[2018-09-22] MEDS: LISINOPRIL 10 MG TAB PO SCH (08:25)
[2018-09-22] MEDS: PANTOPRAZOLE 40 MG TABLET PO SCH (08:25)
[2018-09-22] MEDS: ATORVASTATIN 40 MG TAB PO SCH (08:25)
[2018-09-22] MEDS: ASPIRIN 81 MG PO SCH (08:25)
[2018-09-22] MEDS: MAGNESIUM OXIDE 400 MG TAB PO SCH (08:25)
[2018-09-22] MEDS: DIGOXIN 125 MCG TAB PO SCH (08:25)
[2018-09-22] MEDS: FUROSEMIDE 20 MG TAB PO SCH (08:25)
[2018-09-22] MEDS: SYMBICORT 80-4.5 MCG INHALER INHALATION SCH ×2 (08:34→20:10)
[2018-09-22 09:07] LABS: Basophils # (A) 0.1 k/uL (0-0.2); Basophils % (A) 1 %; Eosinophils # (A) 0.2 k/uL (0-0.7); Eosinophils % (A) 2 %; HCT 39.5 % (39.0-53.0); Lymphocytes # (A) 1.6 k/uL (1.0-4.8); Lymphocytes % (A) 19 %; MCH 30.9 pg (25.0-35.0); MCHC 32.9 g/dL (31.0-37.0); Mean Platelet Volume 7.5; Monocytes # (A) 0.4 k/uL (0-1.0); Monocytes % (A) 5 %; Neutrophils # (A) 5.9 k/uL (1.3-7.7); Neutrophils % (A) 72 %; Platelet Count 292 k/uL (150-450); RDW 15.6 % (11.5-15.5); WBC 8.2 k/uL (3.8-10.6)
[2018-09-22 09:22] LABS: ALT 24 U/L (21-72); AST 31 U/L (17-59); African American GFR (CKD) >90 (>60 ml/min/1.73 sqM); Albumin 3.8 g/dL (3.5-5.0); Alkaline Phosphatase 88 U/L (38-126); Anion Gap 12 mmol/L; Blood Urea Nitrogen 8 mg/dL (9-20); Calcium 9.5 mg/dL (8.4-10.2); Carbon Dioxide 25 mmol/L (22-30); Chloride 99 mmol/L (98-107); Glucose 157 mg/dL (74-99); Potassium 4.4 mmol/L (3.5-5.1); Sodium 136 mmol/L (137-145); Total Bilirubin 1.8 mg/dL (0.2-1.3); Total Protein 6.7 g/dL (6.3-8.2)
[2018-09-22] MEDS: TAMSULOSIN 0.4 MG CAP.ER.24H PO SCH (16:36)
[2018-09-22] MEDS: SODIUM CHLORIDE 0.9% 1,000 ML IV SCH (16:36)
--- NOTE | 2018-09-22 20:30 | PN ---
PROGRESS NOTE CHIEF COMPLAINT: Urinary retention and hematuria. HISTORY OF PRESENT ILLNESS: This gentleman seems to be improving, although yesterday he was hallucinating. He has been seen by Urology and they are not concerned about hematuria. It does seem to be clearing slightly. PHYSICAL EXAMINATION: He seems awake and alert and states he is not hallucinating any longer. He has mild conjunctivitis of the left eye. Otherwise doing well. Chest is clear. Cardiac exam is normal. Abdomen is soft, nontender. The urine is less blood-tinged. IMPRESSION: 1. Urinary retention. 2. Hematuria, probably secondary to trauma. 3. Hallucinations. 4. Conjunctivitis, left eye. PLAN: Watch urine one more day and then try removing the Gan catheter and sending him home. MMODL / IJN: [id number] /
[2018-09-23 01:48] VITALS: RESP 18; TEMP 98.2
[2018-09-23] MEDS: FUROSEMIDE 20 MG TAB PO SCH (07:42)
[2018-09-23] MEDS: APIXABAN 5 MG TAB PO SCH (07:42)
[2018-09-23] MEDS: ATORVASTATIN 40 MG TAB PO SCH (07:42)
[2018-09-23] MEDS: MAGNESIUM OXIDE 400 MG TAB PO SCH (07:42)
[2018-09-23] MEDS: METOPROLOL TARTRATE 50 MG TAB PO SCH (07:42)
[2018-09-23] MEDS: PANTOPRAZOLE 40 MG TABLET PO SCH (07:42)
[2018-09-23] MEDS: LISINOPRIL 10 MG TAB PO SCH (07:42)
[2018-09-23] MEDS: DIGOXIN 125 MCG TAB PO SCH (07:47)
[2018-09-23] MEDS: ASPIRIN 81 MG PO SCH (07:48)
[2018-09-23 08:11] VITALS: BP 154/83
[2018-09-23] MEDS: SYMBICORT 80-4.5 MCG INHALER INHALATION SCH (08:39)
[2018-09-23] MEDS: ALBUTEROL NEBULIZED 2.5 MG/3 ML INHALATION PRN (08:39)
[2018-09-23 08:41] VITALS: PULSE 88
--- NOTE | 2018-09-23 14:58 | DS ---
DISCHARGE SUMMARY CHIEF COMPLAINT: Abdominal pain and urinary retention. HISTORY OF PRESENT ILLNESS AND PHYSICAL EXAMINATION: Details of this man's history and physical can be found in the initial workup. COURSE IN THE HOSPITAL: After admission he was placed on bedrest and started on intravenous fluids. After his bladder was decompressed, his abdominal pain disappeared. He did well and then suddenly developed total gross hematuria. It was felt that this was most likely related to catheter trauma. The catheter was left in for 2 or 3 days and then the urine slowly cleared. It was removed, and he was able to void. It was felt that he could be discharged on September 23. He will go home on his usual activity, diet and medications. Flomax will be added 0.4 mg once a day. He will follow up in a few days. FINAL DIAGNOSES: 1. Acute urinary retention. 2. Coronary artery disease. 3. Atherosclerotic cardiovascular disease. 4. Hematuria. 5. Delirium with hallucinations. OPERATIONS: None. CONSULTATION: Urology. He is improved. MMODL / IJN: [id number] /
== END 2018-09-23 13:45 | disposition home or self-care (01) | DRG 696 ==
LOC: EC 14:41 → 4MS4W 20:35 → OBSVTOIN 09-19 13:05 → 4SSUR 09-22 16:15
PROVIDERS: ADMIT Family Medicine; ATTEND Family Medicine
DX: R33.9 Retention of urine, unspecified (principal); K56.7 Ileus, unspecified; S37.39XA Other injury of urethra, initial encounter; R44.3 Hallucinations, unspecified; E86.0 Dehydration; E83.42 Hypomagnesemia; I48.91 Unspecified atrial fibrillation; E78.5 Hyperlipidemia, unspecified; E87.6 Hypokalemia; J44.9 Chronic obstructive pulmonary disease, unspecified; R63.4 Abnormal weight loss; R31.0 Gross hematuria; H10.9 Unspecified conjunctivitis; I25.10 Atherosclerotic heart disease of native coronary artery without angina pectoris; K44.9 Diaphragmatic hernia without obstruction or gangrene; K80.20 Calculus of gallbladder without cholecystitis without obstruction; I10 Essential (primary) hypertension; R63.0 Anorexia; H91.90 Unspecified hearing loss, unspecified ear; Z79.01 Long term (current) use of anticoagulants; Z79.82 Long term (current) use of aspirin; Z79.51 Long term (current) use of inhaled steroids; Z79.899 Other long term (current) drug therapy; Z95.5 Presence of coronary angioplasty implant and graft; Z87.891 Personal history of nicotine dependence; Z85.46 Personal history of malignant neoplasm of prostate; Z90.79 Acquired absence of other genital organ(s); X50.9XXA Other and unspecified overexertion or strenuous movements or postures, initial encounter
CPT/HCPCS: 36415; 74177; 76705; 80048; 80053; 81001; 83690; 83735; 84132; 84484; 85025; 87086; 93005; 94640; 96361; 96374; 99285